=== PATIENT | male | born 1995 | race Hispanic/Latino ===

== ENCOUNTER 2022-11-06 17:39 | Emergency (ER) | payer SELFPAY ==
[2022-11-06] MEDS ORDERED: HYDROCODONE/APAP 5/325 MG TAB ONE (18:07)
[2022-11-06] MEDS ORDERED: IBUPROFEN 400 MG TAB ONE (18:08)
[2022-11-06] MEDS ORDERED: KETOROLAC 30 MG/ML INJ ONE (19:20)
[2022-11-06] MEDS ORDERED: MORPHINE 4 MG/ML SYR ONE (19:20)
--- NOTE | 2022-11-06 19:36 | RAD REPORT ---
EXAM DESCRIPTION: RAD - Clavicle Right - 11/06/2022 6:25 pm CLINICAL HISTORY: fall COMPARISON: <Comparisons> TECHNIQUE: Right clavicle, 2 views. FINDINGS: Comminuted displaced distal shaft clavicle fracture, with more than 1 shaft with inferior displacement of the major distal fragment. No AC joint or SC joint dislocation. No suspicious finding in the visualized upper chest. IMPRESSION: Comminuted displaced distal shaft clavicle fracture, with more than 1 shaft with inferio r displacement of the major distal fragment.
--- NOTE | 2022-11-06 19:47 | ER ---
Nurse's Notes [facility] Name: Som Rodriguez Age: 27 yrs Sex: Male : 1995 Arrival Date: 11/06/2022 Time: 17:39 Bed 14 Private MD: Diagnosis: Fracture of clavicle Presentation: 11/06 17:48 Chief complaint: Patient states: [place] left kc6 hamstring and fell onto his right shoulder. Coronavirus screen: At this time, the client does not indicate any symptoms associated with coronavirus-19. Ebola Screen: No symptoms or risks identified at this time. Initial Sepsis Screen: Does the patient meet any 2 criteria? No. Patient's initial sepsis screen is negative. Does the patient have a suspected source of infection? No. Patient's initial sepsis screen is negative. Risk Assessment: Do you want to hurt yourself or someone else? Patient reports no desire to harm self or others. Onset of symptoms was November 06, 2022. 17:48 Method Of Arrival: Ambulatory [facility] 17:48 Acuity: MAHESH 3 kc6 Triage Assessment: 17:51 General: Appears in no apparent distress. uncomfortable, Behavior is calm, cooperative, kc6 appropriate for age. Pain: Complains of pain in right arm. EENT: No signs and/or symptoms were reported regarding the EENT system. Neuro: Level of Consciousness is awake, alert, obeys commands, Oriented to person, place, time, situation, Appropriate for age. Cardiovascular: Capillary refill < 3 seconds. Respiratory: Airway is patent Trachea midline Respiratory effort is even, unlabored, Respiratory pattern is regular, symmetrical. GI: No signs and/or symptoms were reported involving the gastrointestinal system. : No signs and/or symptoms were reported regarding the genitourinary system. Derm: No signs and/or symptoms reported regarding the dermatologic system. Skin is intact, Skin is pink, warm \T\ dry. Musculoskeletal: Circulation, motion, and sensation intact. Capillary refill < 3 seconds, Range of motion: limited in right shoulder. Historical: - Allergies: 17:49 No Known Allergies; kc6 - Home Meds: 17:49 None [Active]; kc6 - PMHx: 17:49 None; kc6 - PSHx: 17:49 ACL surgery; kc6 - Immunization history:: Client reports having NOT received the Covid vaccine. Flu vaccine is not up to date. - Social history:: Smoking status: Patient denies any tobacco usage or history of. Screenin:52 [facility] ED Fall Risk Assessment (Adult) History of falling in the last 3 months, kc6 including since admission Yes- single mechanical fall (1 pt) Confusion or Disorientation No (0 pts) Intoxicated or Sedated No (0 pts) Impaired Gait No (0 pts) Mobility Assist Device Used No (0 pt) Altered Elimination No (0 pt) Score/Fall Risk Level 0 - 2 = Low Risk Oriented to surroundings, Maintained a safe environment, Educated pt \T\ family on fall prevention, incl call for assistance when getting out of bed, Assessed \T\ reinforced patient's understanding of fall precautions, Hourly rounding (assess needs \T\ fall precautionary measures) done. Abuse screen: Denies threats or abuse. Denies injuries from another. Nutritional screening: No deficits noted. Tuberculosis screening: No symptoms or risk factors identified. Assessment: 17:48 Reassessment: please see triage assessment. kc6 18:52 Reassessment: Patient appears in no apparent distress at this time. No changes from kc6 previously documented assessment. Patient and/or family updated on plan of care and expected duration. Pain level reassessed. Patient is alert, oriented x 3, equal unlabored respirations, skin warm/dry/pink. 19:18 Reassessment: Patient and/or family updated on plan of care and expected duration. Pain ll3 level reassessed. Patient is alert, oriented x 3, equal unlabored respirations, skin warm/dry/pink. C/o pain to right shoulder 5/10, ERP notified, medicated as ordered. Vital Signs: 17:48 BP 126 / 83; Pulse 87; Resp 18 S; Temp 98.1(O); Pulse Ox 97% on R/A; Weight 83.91 kg kc6 (R); Height 5 ft. 9 in. (R); 18:52 BP 126 / 77; Pulse 86; Resp 18 S; Pulse Ox 99% on R/A; kc6 20:06 BP 122 / 79; Pulse 84; Resp 16; Pulse Ox 99% on R/A; ll3 17:48 Body Mass Index 27.32 (83.91 kg, 175.26 cm) [facility] ED Course: 17:42 Patient arrived in ED. rg4 17:45 Lilia Evans, RN is Primary Nurse. kc6 17:45 Ravinder Zee PA is PHCP. [facility] 17:45 Dmitriy Tamez MD is Attending Physician. [facility] 17:49 Triage completed. kc6 17:51 Arm band placed on. kc6 17:52 Patient has correct armband on for positive identification. Bed in low position. Call kc light in reach. Side rails up X 1. Adult w/ patient. 18:27 Clavicle Right XRAY In Process Unspecified. EDMS 19:46 Joe Hernandez MD is Referral Physician. [facility] 20:05 No provider procedures requiring assistance completed. Patient did not have IV access ll3 during this emergency room visit. Administered Medications: 18:02 Drug: Ibuprofen PO 400 mg Route: PO; hb 18:53 Follow up: Response: No adverse reaction; Pain is unchanged, physician notified [facility] 18:02 Drug: HYDROcodone-acetaminophen PO 5 mg-325 mg 1 tabs Route: PO; hb 18:53 Follow up: Response: No adverse reaction; Pain is decreased; RASS: Alert and Calm (0) [facility] 19:17 Drug: morphine IM 4 mg Route: IM; Site: left deltoid; ll3 20:04 Follow up: Response: No adverse reaction; Pain is decreased ll3 19:17 Drug: Ketorolac IM 30 mg Route: IM; Site: left deltoid; ll3 20:04 Follow up: Response: No adverse reaction; Pain is decreased ll3 Medication: 20:06 VIS not applicable for this client. ll3 Outcome: 19:46 Discharge ordered by . [facility] 20:05 Discharged to home ambulatory, with friend. ll3 20:05 Condition: stable 20:05 Discharge instructions given to patient, friend, Instructed on discharge instructions, follow up and referral plans. medication usage, Demonstrated understanding of instructions, follow-up care, medications, Prescriptions given X 2. 20:07 Patient left the ED. ll3 Signatures: Dispatcher [employer] EDMS Ravinder Zee PA PA jmm Baxter, Heather, RN RN Shannan Arcos rg4 Mars Schwarz RN RN ll3 Evans, Lilia, RN RN kc6
--- NOTE | 2022-11-06 19:47 | EDPHYS ---
Physician Documentation [facility] Name: Som Rodriguez Age: 27 yrs Sex: Male : 1995 Arrival Date: 11/06/2022 Time: 17:39 Bed 14 Private MD: ED Physician Dmitriy Tamez HPI: 11/06 17:45 This 27 yrs old Male presents to ER via Ambulatory with complaints of Shoulder jmm Injury. 17:45 The patient or guardian complains of an injury, pain. Onset: The symptoms/episode jmm began/occurred acutely. Modifying factors: the symptoms are alleviated by nothing. The symptoms are aggravated by movement, rotation of arm. This is a 27 year old male with no chronic medical conditions that presents to the ED with complaints of right shoulder pain after a fall which occurred just prior to arrival. Patient states pulling his hamstring, falling forward. Denies head injury. Denies neck pain. . Historical: - Allergies: 17:49 No Known Allergies; kc6 - Home Meds: 17:49 None [Active]; kc6 - PMHx: 17:49 None; kc6 - PSHx: 17:49 ACL surgery; kc6 - Immunization history:: Client reports having NOT received the Covid vaccine. Flu vaccine is not up to date. - Social history:: Smoking status: Patient denies any tobacco usage or history of. ROS: 17:45 Constitutional: Negative for fever, chills, and weight loss. jmm 17:45 MS/extremity: Positive for injury or acute deformity. 17:45 All other systems are negative. Exam: 17:45 Constitutional: This is a well developed, well nourished patient who is awake, alert, jmm and in no acute distress. Head/Face: atraumatic. Eyes: EOMI, no conjunctival erythema appreciated ENT: Moist Mucus Membranes Neck: Trachea midline, Supple 17:45 Chest/axilla: right clavicular pain. 17:45 Cardiovascular: Rate: normal. 17:45 Respiratory: the patient does not display signs of respiratory distress, Respirations: normal, Breath sounds: are clear throughout. 17:45 Musculoskeletal/extremity: right arm is held in adduction, internal rotation, full size stamper strength, full radial pulse, NVI. 17:45 Skin: Appearance: Color: normal in color. 17:45 Neuro: Orientation: is normal, Mentation: is normal, Memory: is normal. 17:45 Psych: Behavior/mood is pleasant, cooperative. Vital Signs: 17:48 BP 126 / 83; Pulse 87; Resp 18 S; Temp 98.1(O); Pulse Ox 97% on R/A; Weight 83.91 kg 6 (R); Height 5 ft. 9 in. (R); 18:52 BP 126 / 77; Pulse 86; Resp 18 S; Pulse Ox 99% on R/A; kc6 20:06 BP 122 / 79; Pulse 84; Resp 16; Pulse Ox 99% on R/A; ll3 17:48 Body Mass Index 27.32 (83.91 kg, 175.26 cm) 6 MDM: 17:45 Patient medically screened. [facility] 19:45 Differential diagnosis: clavicle fracture, shoulder dislocation, humerus fracture. Data [facility] reviewed: vital signs, nurses notes, radiologic studies, plain films. I considered the following discharge prescriptions or medication management in the emergency department Medications were administered in the Emergency Department. See MAR. Independent interpretation of the following test(s) in the Emergency Department X-Ray: My interpretation is . Counseling: I had a detailed discussion with the patient and/or guardian regarding: the historical points, exam findings, and any diagnostic results supporting the discharge/admit diagnosis, radiology results, the need for outpatient follow up, to return to the emergency department if symptoms worsen or persist or if there are any questions or concerns that arise at home. 11/06 17:50 Order name: Clavicle Right XRAY; Complete Time: 19:40 [facility] 11/06 18:52 Order name: Sling; Complete Time: 20:02 [facility] Administered Medications: 18:02 Drug: Ibuprofen PO 400 mg Route: PO; hb 18:53 Follow up: Response: No adverse reaction; Pain is unchanged, physician notified [facility] 18:02 Drug: HYDROcodone-acetaminophen PO 5 mg-325 mg 1 tabs Route: PO; hb 18:53 Follow up: Response: No adverse reaction; Pain is decreased; RASS: Alert and Calm (0) [facility] 19:17 Drug: morphine IM 4 mg Route: IM; Site: left deltoid; ll3 20:04 Follow up: Response: No adverse reaction; Pain is decreased ll3 19:17 Drug: Ketorolac IM 30 mg Route: IM; Site: left deltoid; ll3 20:04 Follow up: Response: No adverse reaction; Pain is decreased ll3 Disposition Summary: 11/06/22 19:46 Discharge Ordered Location: Home [facility] Condition: Stable [facility] Diagnosis - Fracture of clavicle [facility] Followup: [facility] - With: Joe Hernandez MD - When: 2 - 3 days - Reason: Recheck today's complaints, Continuance of care, Re-evaluation by your physician Discharge Instructions: - Discharge Summary Sheet [facility] - Clavicle Fracture [facility] Forms: - Work release form [facility] - Medication Reconciliation Form [facility] - Thank You Letter [facility] - Antibiotic Education [facility] - Prescription Opioid Use [facility] - [email or web address] [facility] Prescriptions: - Diclofenac Sodium 75 mg Oral Tablet Sustained Release - take 1 tablet by ORAL route 2 times per day; 30 tablet; Refills: 0, Product [facility] Selection Permitted - Tramadol 50 mg Oral Tablet - take 1 tablet by ORAL route every 8 hours As needed as needed; 30 tablet; [facility] Refills: 0, Product Selection Permitted Addendum: 11/10/2022 08:58 Co-signature as Attending Physician, Dmitriy Tamez MD I reviewed the patient's care r n provided by the Advanced Practice Provider and agree with the diagnosis and treatment plan. Signatures: Dispatcher [employer] Ravinder Loo PA PA jmm Nieto, Roman, MD MD rn Baxter, Heather, RN RN Mars Schwarz RN RN ll3 Lilia Evans RN RN kc6
[2022-11-06 20:12] VITALS: TEMP 98.1
[2022-11-06 20:13] VITALS: O2SAT 99
[2022-11-06 20:14] VITALS: BP 122/79
== END 2022-11-06 20:07 | disposition home or self-care (01) ==
LOC: ER 17:39
DX: S42.001A Fracture of unspecified part of right clavicle, initial encounter for closed fracture (principal)
CPT/HCPCS: 96372; 99284